=== PATIENT | female | born 1935 ===

== ENCOUNTER 2018-04-26 11:18 | Emergency (ER) | payer OTHER ==
[~2018-04-26] VITALS: Ht 167.6 cm; Wt 67.1 kg
== END 2018-04-26 16:16 | disposition home or self-care (01) ==
LOC: ER 11:18
DX: M79.651 Pain in right thigh (principal)

== ENCOUNTER 2018-04-29 08:44 | Emergency (ER) | payer OTHER ==
[~2018-04-29] VITALS: Ht 172.7 cm; Wt 72.6 kg
== END 2018-04-29 10:41 | disposition home or self-care (01) ==
LOC: ER 08:44
DX: M79.18 Myalgia, other site (principal)